=== PATIENT | male | born 1990 | race American Indian/Alaskan Native ===

== ENCOUNTER 2018-10-13 11:00 | Emergency (ER) | payer SELFPAY ==
--- NOTE | 2018-10-13 11:20 | Emergency Department Report ---
Chief Complaint: Extremity Problem,Nontraumatic Stated Complaint: RT HAND PAIN Time Seen by Provider: 10/13/18 11:15 - HPI History of Present Illness: This is a 27 y.o. male that presents with right hand pain x 1.5 weeks. Pain worse with movement. cc: swelling and pain in 1st - 3rd metacarpal area - ROS Review of Systems: pain and swelling to right hand - Exam Vital Signs: Vital Signs 10/13/18 11:15 Temperature 97.9 F Pulse Rate 72 Respiratory 16 Rate Blood Pressure 152/94 O2 Sat by Pulse 100 Oximetry MSE screening note: Focused history and physical exam performed. Due to findings the following was ordered: XR of right hand. Fast track for further evaluation. ED Disposition for MSE Condition: Stable
--- NOTE | 2018-10-13 11:53 | XRay Report ---
RIGHT HAND, 3 views: History: Pain and swelling to metacarpals 1-3. The bony architecture is intact. Bony alignment is normal. No soft tissue abnormalities are seen. The joint spaces appear preserved. IMPRESSION: Right hand within normal limits.
[2018-10-13] MEDS ORDERED: IBUPROFEN PO ONE (12:17)
--- NOTE | 2018-10-13 12:19 | Emergency Department Report ---
ED Extremity Problem HPI - General Chief complaint: Extremity Problem,Nontraumatic Stated complaint: RT HAND PAIN Time Seen by Provider: 10/13/18 11:15 Source: patient Mode of arrival: Ambulatory Limitations: No Limitations - History of Present Illness Initial comments: Patient is a 27-year-old male who comes to the ER today complaining of right hand pain after working over the last couple days. 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 He denies hitting or striking any objects. He is moving the hand without difficulty. Past medical history none Home medications none Patient states that movement makes the pain worse. He is not taking any medicines to make it better at home. He states that not working makes the pain go away -: Gradual, days(s) Location: right History of Same: No Severity scale (0 -10): 4 Consistency: constant Improves with: nothing Worsens with: other (work) Associated Symptoms: denies other symptoms - Related Data Previous Rx's Medication Instructions Recorded Last Taken Type HYDROcodone/APAP 5-325 [[place] 1 each PO Q6HR PRN #14 tablet 10/14/15 Unknown Rx 5/325] Omeprazole [PriLOSEC] 20 mg PO QDAY #20 capsule. 10/14/15 Unknown Rx Atenolol [Tenormin] 25 mg PO DAILY #30 tablet 10/13/18 Unknown Rx Allergies Allergy/AdvReac Type Severity Reaction Status Date / Time No Known Allergies Allergy Verified 10/14/15 21:59 ED Review of Systems ROS: Stated complaint: RT HAND PAIN Other details as noted in HPI Comment: All other systems reviewed and negative Constitutional: denies: see HPI Eyes: denies: eye pain ENT: denies: ear pain Respiratory: denies: cough Cardiovascular: denies: palpitations Endocrine: denies: flushing Gastrointestinal: denies: nausea Genitourinary: denies: urgency Musculoskeletal: as per HPI Skin: denies: lesions Neurological: denies: weakness Psychiatric: denies: depression Hematological/Lymphatic: denies: easy bleeding ED Past Medical Hx - Past Medical History Previous Medical History?: Yes Hx Hypertension: Yes Additional medical history: "STOMACH ULCERS" - Surgical History Past Surgical History?: No - Family History Family history: no significant - Social History Smoking Status: Never Smoker Substance Use Type: Alcohol - Medications Home Medications: Home Medications Medication Instructions Recorded Confirmed Last Taken Type HYDROcodone/APAP 5-325 [[place] 1 each PO Q6HR PRN #14 tablet 10/14/15 Unknown Rx 5/325] Omeprazole [PriLOSEC] 20 mg PO QDAY #20 capsule. 10/14/15 Unknown Rx Atenolol [Tenormin] 25 mg PO DAILY #30 tablet 10/13/18 Unknown Rx ED Physical Exam - General Limitations: No Limitations General appearance: alert - Head Head exam: Present: atraumatic - Eye Eye exam: Present: normal appearance, PERRL - ENT ENT exam: Present: mucous membranes moist - Neck Neck exam: Present: normal inspection - Respiratory Respiratory exam: Present: normal lung sounds bilaterally - Cardiovascular Cardiovascular Exam: Present: regular rate - GI/Abdominal GI/Abdominal exam: Present: soft - Expanded Upper Extremity Exam Right Shoulder Exam: Present: normal inspection Upper Arm exam: Present: normal inspection Elbow exam: Present: normal inspection Forearm Wrist exam: Present: normal inspection Hand Wrist exam: Present: normal inspection, full ROM, swelling. Absent: tenderness, abrasion, laceration, ecchymosis, deformity Vascular: Present: radial pulse, brachial pulse, ulnar pulse - Back Exam Back exam: Present: normal inspection, full ROM ED Course Vital Signs 10/13/18 10/13/18 11:15 12:39 Temperature 97.9 F 98.0 F Pulse Rate 72 77 Respiratory 16 15 Rate Blood Pressure 152/94 Blood Pressure 140/92 [Left] O2 Sat by Pulse 100 Oximetry ED Medical Decision Making - Radiology Data Radiology results: report reviewed - Medical Decision Making no snuff box tenderness neurovasc intact srinivas for comfort dc home with ortho follow up Vital Signs 10/13/18 11:15 Temperature 97.9 F Pulse Rate 72 Respiratory 16 Rate Blood Pressure 152/94 O2 Sat by Pulse 100 Oximetry - Differential Diagnosis ro fx Critical care attestation.: If time is entered above; I have spent that time in minutes in the direct care of this critically ill patient, excluding procedure time. ED Disposition Clinical Impression: Hand pain, Medication refill Disposition: DC-01 TO HOME OR SELFCARE Is pt being admited?: No Does the pt Need Aspirin: No Condition: Stable Instructions: Contusion in Adults (ED) Additional Instructions: Srinivas wrap for 24 hours Motrin or Tylenol for pain Ice and elevation for comfort Follow-up with Lindsey M.D. if persist Referral below diet and activity as tolerated Prescriptions: Atenolol [Tenormin] 25 mg PO DAILY #30 tablet Referrals: CHIDI TRIPATHI MD [Primary Care Provider] - 3-5 Days MARY GRACE RETANA MD [Staff Physician] - 3-5 Days Forms: Work/School Release Form(ED) Time of Disposition: 12:17
[2018-10-13 12:41] VITALS: BP 140/92
== END 2018-10-13 12:39 | disposition home or self-care (01) ==
LOC: ED 11:00
DX: M79.641 Pain in right hand (principal); Z76.0 Encounter for issue of repeat prescription; I10 Essential (primary) hypertension
CPT/HCPCS: 99283

== ENCOUNTER 2019-07-08 10:59 | Emergency (ER) | payer SELFPAY ==
[2019-07-08 11:04] VITALS: BP 166/102
--- NOTE | 2019-07-08 11:14 | Emergency Department Report ---
Chief Complaint: Dental/Oral Stated Complaint: TOOTHACHE Time Seen by Provider: 07/08/19 11:12 - HPI History of Present Illness: 28 y/o male comes in for toothache times 4 days. Patient reports that his work schedule does not permit him to f/o with a dentist as he works to 4pm. - Exam Vital Signs: Vital Signs 07/08/19 11:03 Temperature 98.9 F Pulse Rate 117 H Respiratory 20 Rate Blood Pressure 166/102 O2 Sat by Pulse 100 Oximetry MSE screening note: Focused history and physical exam performed. Due to findings the following was ordered: Patient given a handout to community dentist. ED Disposition for MSE Condition: Stable
== END 2019-07-08 11:54 | disposition left against medical advice (07) ==
LOC: ED 10:59
DX: K08.89 Other specified disorders of teeth and supporting structures (principal); Z53.21 Procedure and treatment not carried out due to patient leaving prior to being seen by health care provider